=== PATIENT | male | born 1975 | race Asian ===

== ENCOUNTER 2017-07-27 06:00 | Emergency (ER) | payer SELFPAY ==
[~2017-07-27] VITALS: Ht 160 cm; Wt 53.1 kg
[2017-07-27 06:05] VITALS: BP 141/102
--- NOTE | 2017-07-27 06:10 | NUR ---
AMBULATED TO ER BED 7
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
--- NOTE | 2017-07-27 06:17 | NUR ---
[facility] CONTACTED. OFFICER WILL BE DISPATCHED OUT TO SPEAK WITH PATIENT.
--- NOTE | 2017-07-27 06:25 | NUR ---
Patient being evaluated by physician at bedside.
[2017-07-27] MEDS ORDERED: ACETAMINOPHEN EXTRA STRENGTH 500 MG TAB PO ONE (06:35)
--- NOTE | 2017-07-27 06:50 | NUR ---
PT TAKEN FOR CT SCAN VIA WHEELCHAIR.
--- NOTE | 2017-07-27 07:02 | NUR ---
PT BACK FROM CT SCAN.
--- NOTE | 2017-07-27 07:14 | NUR ---
Pt report given to TIM HOBBS. Transfer of care at this time.
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
--- NOTE | 2017-07-27 07:42 | NUR ---
BP 143/85, P 75, PAIN 12/26. DENIES N/V OR DIZZINESS AT THIS TIME. MADE AWARE.
--- NOTE | 2017-07-27 08:17 | NUR ---
[employer] AT BEDSIDE.
[2017-07-27 08:45] VITALS: BP 143/85
--- NOTE | 2017-07-27 08:45 | NUR ---
Patient discharged with 143/85; MD MADE AWARE. Written and verbal after care instructions given and explained. Patient alert, oriented and verbalized understanding of instructions. Ambulatory with steady gait. All questions addressed prior to discharge. ID band removed. Patient advised to follow up with PMD. Rx of NAPROSYN given. Patient educated on indication of medication including possible reaction and side effects. Opportunity to ask questions provided and answered.
== END 2017-07-27 08:45 | disposition home or self-care (01) ==
LOC: MED 06:00
DX: S01.81XA Laceration without foreign body of other part of head, initial encounter (principal); Y04.2XXA Assault by strike against or bumped into by another person, initial encounter; Y93.89 Activity, other specified; Y92.89 Other specified places as the place of occurrence of the external cause; Y99.8 Other external cause status
CPT/HCPCS: 70450; 90471; 90715; 99284

== ENCOUNTER 2017-07-29 11:01 | Emergency (ER) | payer SELFPAY ==
[~2017-07-29] VITALS: Ht 160 cm; Wt 53.5 kg
[2017-07-29 11:36] VITALS: BP 125/83
--- NOTE | 2017-07-29 12:12 | NUR ---
Cheryl bear in ED - 07/29/17 at 1234 by [email or web address] PT PRESENTS TO ER FOR RECHECK OF MONICA TO BACK OF HEAD.
--- NOTE | 2017-07-29 12:18 | NUR ---
Patient ambulated to bed 4. RN evaluating patient at bedside.
[2017-07-29 12:20] VITALS: BP 125/83
--- NOTE | 2017-07-29 12:20 | NUR ---
PT PRESENTS TO ER FOR RECHECK OF MONICA TO BACK OF HEAD. SKIN C/D/I. AAOX4 WITH EVEN AND STEADY GAIT; LUNGS CLEAR BL; HR EVEN AND REGULAR; PT DENIES ANY FEVER, CP, SOB, OR COUGH AT THIS TIME; PATIENT STATES PAIN OF 0/10 AT THIS TIME; VSS; PATIENT POSITIONED FOR COMFORT; HOB ELEVATED; BEDRAILS UP X2; BED DOWN. ER MD MADE AWARE OF PT STATUS.
--- NOTE | 2017-07-29 12:25 | NUR ---
PT WAS SEEN BY DR DAVE.
--- NOTE | 2017-07-29 12:30 | NUR ---
Patient discharged with v/s stable. Written and verbal after care instructions given and explained. Patient verbalized understanding. Ambulatory with steady gait. All questions addressed prior to discharge. Advised to follow up with PMD. Addendum: 07/29/17 at 1345 by [facility] PT DC W/O SIGNING
== END 2017-07-29 12:30 | disposition home or self-care (01) ==
LOC: MED 11:01
DX: S01.81XD Laceration without foreign body of other part of head, subsequent encounter (principal); X58.XXXD Exposure to other specified factors, subsequent encounter
CPT/HCPCS: 99281

== ENCOUNTER 2020-05-16 23:55 | Emergency (ER) | payer OTHER ==
[~2020-05-16] VITALS: Ht 160 cm; Wt 59.0 kg
--- NOTE | 2020-05-16 23:55 | NUR ---
PT LARA LOPEZS. TAKEN TO BED 4
[2020-05-16 23:57] VITALS: BP 157/97
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
--- NOTE | 2020-05-17 00:04 | NUR ---
Dr. Heath examining patient.
--- NOTE | 2020-05-17 00:07 | NUR ---
RECEIVED REPORT FROM [facility] FOR CONTINUITY OF CARE
--- NOTE | 2020-05-17 00:07 | NUR ---
Cheryl bear in [facility] - 05/17/20 at 0007 by MILLA RECEIVED REPORT FROM [facility] FOR CONTINUITY OF CARE
[2020-05-17] MEDS ORDERED: ONDANSETRON 4 MG/2 ML VIAL IM ONE (00:10)
[2020-05-17] MEDS ORDERED: KETOROLAC 60 MG/2 ML VIAL IM ONE (00:10)
--- NOTE | 2020-05-17 01:29 | NUR ---
PT TAKEN TO CT VIA W/C
--- NOTE | 2020-05-17 01:39 | NUR ---
PT RETURNED TO BED 4
--- NOTE | 2020-05-17 02:15 | NUR ---
PT VSS. NO DISTRESS NOTED. PT A&OX4. RESPIRATIONS EVEN AND UNLABORED. CHEST RISE IS SYMMETRICAL. WILL CONTINUE TO MONITOR.
[2020-05-17] MEDS ORDERED: levETIRAcetam 1,000 MG in NACL 0.9% 100 ML IV ONE (02:30)
[2020-05-17] MEDS ORDERED: OSMITROL 25% 12.5 GM/50 ML VIAL IV ONE (02:30)
[2020-05-17] MEDS ORDERED: SODIUM CHLORIDE FLUSH 10 ML SYR IVF ONE (02:30)
[2020-05-17] MEDS ORDERED: NIMODIPINE 30 MG PO ONE (02:30)
[2020-05-17] MEDS ORDERED: levETIRAcetam 100 MG/ML VIAL IV ONE (02:35)
[2020-05-17 03:30] LABS: BASOPHILS # (AUTO) 0.1 K/uL (0.00-0.22); BASOPHILS % (AUTO) 0.5 % (0.0-2.0); EOSINOPHILS % (AUTO) 0.1 % (0.0-4.0); HEMATOCRIT 41.5 % (36-52); HEMOGLOBIN 13.9 g/dL (12.0-18.0); LYMPHOCYTES # (AUTO) 2.8 K/uL (2.0-11.5); LYMPHOCYTES % (AUTO) 27.8 % (20.5-51.1); MEAN CORPUSCULAR HEMOGLOBIN 31 pg (27-31); MEAN CORPUSCULAR HGB CONC 34 g/dL (33-37); MEAN CORPUSCULAR VOLUME 91.8 fL (80-94); MONOCYTES # (AUTO) 0.7 K/uL (0.8-1.0); MONOCYTES % (AUTO) 7.1 % (1.7-9.3); NEUTROPHILS # (AUTO) 6.6 K/uL (1.8-7.7); NEUTROPHILS % (AUTO) 64.5 % (42.2-75.2); PLATELET COUNT (AUTO) 309 K/uL (140-450); RED BLOOD CELL COUNT(AUTO) 4.52 MIL/uL (4.20-6.10); RED CELL DISTRIBUTION WIDTH 12.7 % (11.6-13.7); WHITE BLOOD COUNT (AUTO) 10.2 K/uL (4.8-10.8)
[2020-05-17] MEDS ORDERED: MORPHINE SULFATE 2 MG/ML SYR IVP ONE (03:35)
[2020-05-17 03:51] LABS: PROTHROMBIN TIME 9.8 secs (10.8-13.4)
--- NOTE | 2020-05-17 03:58 | NUR ---
PT VSS. NO DISTRESS NOTED. PT A&OX4. RESPIRATIONS EVEN AND UNLABORED. CHEST RISE IS SYMMETRICAL. WILL CONTINUE TO MONITOR
--- NOTE | 2020-05-17 04:02 | NUR ---
CALLED [facility] ER . REPORT GIVEN TO [facility]UM[facility]. ALL QUESTIONS AND CONCERNS ANSWERED AT THIS TIME. PICKUP ETA 45MIN.
[2020-05-17 04:04] LABS: ALBUMIN 3.1 g/dL (3.4-5.0); ANION GAP 8.3 (8-16); CARBON DIOXIDE 32.1 mmol/L (21-32); POTASSIUM 3.4 mmol/L (3.5-5.1); TOTAL BILIRUBIN 0.4 mg/dL (0.0-1.0)
--- NOTE | 2020-05-17 04:43 | NUR ---
[facility] AT BEDSIDE
--- NOTE | 2020-05-17 04:45 | NUR ---
URINE OUTPUT 600 ML, CLEAR YELLOW, NORMAL ODOR NOTED.
--- NOTE | 2020-05-17 04:48 | NUR ---
REPORT GIVEN [facility].
[2020-05-17 04:49] VITALS: BP 135/90
--- NOTE | 2020-05-17 04:49 | NUR ---
PT TAKEN BY [facility] TO [facility] ER
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
--- NOTE | 2020-05-17 04:55 | NUR ---
Patient to be transferred to [facility]. Is being transferred due to HIGHER LEVEL OF CARE. Receiving facility has accepting physician and available space. ER physician has signed transfer form. Patient or responsible libertarian has agreed to transfer and signed form. Patient belongings inventoried and will be sent with patient. Copy of nursing notes, lab reports, EKG, Physicians Orders and X-rays to be sent with patient. Report called to [facility]UM[facility] at receiving facility. [facility] ambulance service has been called for transfer. ETA is 30-45MIN.
== END 2020-05-17 04:49 | disposition short-term general hospital (02) ==
LOC: MED 23:55
DX: S09.90XA Unspecified injury of head, initial encounter (principal); F15.10 Other stimulant abuse, uncomplicated; R03.0 Elevated blood-pressure reading, without diagnosis of hypertension; V29.9XXA Motorcycle rider (driver) (passenger) injured in unspecified traffic accident, initial encounter; Y93.I9 Activity, other involving external motion; Y92.89 Other specified places as the place of occurrence of the external cause; Y99.8 Other external cause status
CPT/HCPCS: 36415; 70450; 80053; 85025; 85610; 85730; 96365; 96366; 96367; 96372; 96375; 99291; J1885; J1953; J2150; J2270; J2405; 96376; 99284